=== PATIENT | female | born 1950 | race Caucasian/White ===

== ENCOUNTER 2024-01-17 11:15 | Emergency (ER) | payer OTHER ==
[2024-01-17] MEDS ORDERED: NA CHLORIDE 0.9% 500 ML ONE (11:56)
--- NOTE | 2024-01-17 11:56 | RAD REPORT ---
EXAMINATION: ONE VIEW CHEST XR CLINICAL INDICATION: Female, 73 years old.,COUGH TECHNIQUE: Frontal chest projection is submitted. Examination is limited by patient positioning and t echnique. COMPARISON: 11/25/2007 FINDINGS: The lungs are well inflated and clear. No pneumothorax or sizable effusion. The heart is normal in s ize. Mediastinal contours are unremarkable. IMPRESSION: No acute intrathoracic abnormalities.
[2024-01-17 11:57] LABS: Absolute Basophils 0.1 K/uL (0-0.5); Absolute Eosinophils 0.2 K/uL (0-0.5); Absolute Monocytes 0.4 K/uL (0.1-1.3); Absolute Neutrophil 7.6 K/uL (1.8-8.0); Basophils % 0.7 % (0-1.3); Eosinophils % 1.8 % (0-4.4); Hematocrit 38.5 % (36.0-45.0); Hemoglobin 12.6 g/dL (12.0-15.0); Lymphocytes % 11.3 % (15.3-44.8); MCH 29.2 pg (27.0-35.0); MCHC 32.8 g/dL (32.0-36.0); MPV 7.5 fL (7.6-11.3); Monocytes % 4.1 % (3.3-12.3); Neutrophils % 82.1 % (41.7-73.7); Platelets 214 thou/uL (152-406); RBC Red Blood Cell Count 4.33 M/uL (3.86-4.86); Red Cell Distribution Width 14.6 % (12.1-15.2)
[2024-01-17 12:01] LABS: PT Prothrombin Time 11.5 SECONDS (9.4-12.5); Protime INR 1.03; Specific Gravity 1.005 (1.005-1.030); Sqamous Epithelial <5 /HPF (None Seen); Urine Bacteria <20 /HPF (<20); Urine Bilirubin NEGATIVE (Negative); Urine Blood Negative (Negative); Urine Clarity Clear (Clear); Urine Color Colorless (Yellow); Urine Culture Reflex Order NOT NEEDED; Urine Glucose NEGATIVE (Negative); Urine Ketones NEGATIVE (Negative); Urine Microscopic Reflex YN ORDER UMIC; Urine Nitrite NEGATIVE (Negative); Urine Protein 2+ (Negative); Urine RBC <5 /HPF (None Seen); Urine Urobilinogen Normal (Normal); Urine WBC <5 /HPF (<5); Urine pH 6.5 (5.0-7.0)
[2024-01-17 12:18] LABS: ALT/SGPT 20 U/L (13-56); AST/SGOT 18 U/L (15-37); Albumin 3.6 g/dL (3.4-5.0); Alkaline Phosphatase 64 U/L (45-117); Anion Gap 8.9 mEq/L (5.0-15.0); BUN Blood Urea Nitrogen 36 mg/dL (7-18); Bicarbonate 25 mEq/L (21-32); Bilirubin Total 0.3 mg/dL (0.2-1.0); Globulin 3.7 g/dL (2.3-3.5); Glomerular Filtration Rate 50 ml/min (=/>90); Glucose Level 209 mg/dL (74-106); Lipase 93 U/L (13-75); Magnesium 1.8 mg/dL (1.6-2.4); NT PRO-BNP 485 pg/mL (<125); Potassium 3.9 mEq/L (3.5-5.1); Protein, Total 7.3 g/dL (6.4-8.2); Sodium Level 136 mEq/L (136-145); Troponin High Sensitivity 17.4 pg/mL (<58.9)
[2024-01-17 12:20] LABS: Bilirubin Direct < 0.2 mg/dL (0-0.2); Bilirubin Indirect, Calculated 0.1 mg/dL (0.2-0.8)
--- NOTE | 2024-01-17 14:00 | RAD REPORT ---
EXAMINATION: CT ABDOMEN AND PELVIS WITHOUT CONTRAST CLINICAL INDICATION: FLANK PAIN TECHNIQUE: CT abdomen and pelvis was performed, without IV contrast, as per department protocol. Axia l, sagittal and coronal reconstructions were obtained. One or more of the following dose reduction techniques were used: Automated exposure control, adjustment of the mA and kV according to the patien t size, and iterative reconstruction. Unless otherwise specified, incidental findings do not require dedicated imaging follow-up. COMPARISON: No prior exam. FINDINGS: The lack of intravenous contrast limits the sensitivity of this exam for evaluation of solid visceral organs, vascular structures, and retroperitoneum. LOWER CHEST: The visualized lung bases are clear. LIVER:Normal in size and contour. No focal lesion. Grossly unremarkable gallbladder. SPLEEN: Normal size. No focal lesion. PANCREAS: No mass, ductal dilation, or mika-pancreatic fluid. ADRENALS: Normal; no mass. KIDNEYS AND URETERS: Tiny punctate calyceal calculi suspected. No evidence of obstructive uropathy. URINARY BLADDER: Normal contour. GASTROINTESTINAL TRACT: No evidence of bowel obstruction, significant free fluid, free air or abscess . Sigmoid diverticulosis coli is present without diverticulitis. APPENDIX: Normal appendix. LYMPH NODES: No lymphadenopathy. MUSCULOSKELETAL: Moderate multilevel spinal degenerative changes. Minimal anterolisthesis L4 on 5. ADDITIONAL FINDINGS: None. IMPRESSION: Tiny punctate calculi suspected in both kidneys without hydronephrosis or other worrisome finding.
--- NOTE | 2024-01-17 14:04 | ER ---
Nurse's Notes [facility] Name: Deborah Ramirez Age: 73 yrs Sex: Female : 1950 Arrival Date: 01/17/2024 Time: 11:15 Bed 18 Private MD: Diagnosis: Essential (primary) hypertension;UTI/ Urinary tract infection, site not specified;Dizziness and giddiness Presentation: 01/16 11:25 Coronavirus screen: Client denies travel out of the [place] in the last 14 days. Ebola tm6 Screen: Patient negative for fever greater than or equal to 101.5 degrees Fahrenheit, and additional compatible Ebola Virus Disease symptoms Patient denies exposure to infectious person. Patient denies travel to an Ebola-affected area in the 21 days before illness onset. No symptoms or risks identified at this time. Initial Sepsis Screen:. 11:25 Method Of Arrival: EMS: [facility] tm6 11:25 Acuity: YOJANA 3 tm6 11:25 Chief complaint: EMS states: started to feel dizzy this morning and had high bp. tm6 Initial Sepsis Screen: Does the patient meet any 2 criteria? No. Patient's initial sepsis screen is negative. Does the patient have a suspected source of infection? No. Patient's initial sepsis screen is negative. Onset of symptoms was January 17, 2024. 15:27 Risk Assessment: Do you want to hurt yourself or someone else? Patient reports no tm6 desire to harm self or others. 15:28 Initial Sepsis Screen: Does the patient meet any 2 criteria?. tm6 Triage Assessment: 11:52 General: Appears in no apparent distress. Behavior is calm, cooperative. Pain: Denies tm6 pain. EENT: No signs and/or symptoms were reported regarding the EENT system. Neuro: Level of Consciousness is awake, alert, obeys commands, Oriented to person, place, time, situation, Reports dizziness, since around 0830 this morning. Mostly when she stands up. Cardiovascular: Patient's skin is warm and dry. Respiratory: Airway is patent Respiratory effort is even, unlabored, Respiratory pattern is regular, symmetrical. GI: No signs and/or symptoms were reported involving the gastrointestinal system. Abdomen is flat, non-distended. : No signs and/or symptoms were reported regarding the genitourinary system. Derm: No signs and/or symptoms reported regarding the dermatologic system. Musculoskeletal: No signs and/or symptoms reported regarding the musculoskeletal system. Historical: - Allergies: 11:52 No Known Allergies; tm6 - PMHx: 11:52 Diabetes mellitus; Hypertensive disorder; tm6 - PSHx: 11:52 cardiac stents; tm6 - Immunization history:: Flu vaccine is not up to date. - Infectious Disease History:: Denies. - Social history:: Smoking status: Patient denies any tobacco usage or history of. Screenin:54 [facility] ED Fall Risk Assessment (Adult) History of falling in the last 3 months, tm6 including since admission No falls in past 3 months (0 pts) Confusion or Disorientation No (0 pts) Intoxicated or Sedated No (0 pts) Impaired Gait No (0 pts) Mobility Assist Device Used No (0 pt) Altered Elimination No (0 pt) Score/Fall Risk Level 0 - 2 = Low Risk Oriented to surroundings, Maintained a safe environment, Educated pt \T\ family on fall prevention, incl call for assistance when getting out of bed. Abuse screen: Denies threats or abuse. Denies injuries from another. Nutritional screening: No deficits noted. Tuberculosis screening: No symptoms or risk factors identified. Assessment: 11:54 Reassessment: see triage assessment. tm6 14:21 Reassessment: Patient and/or family updated on plan of care and expected duration. Pain tm6 level reassessed. Patient is alert, oriented x 3, equal unlabored respirations, skin warm/dry/pink. 15:00 Reassessment: Patient and/or family updated on plan of care and expected duration. Pain tm6 level reassessed. Patient is alert, oriented x 3, equal unlabored respirations, skin warm/dry/pink. 15:26 Reassessment: Patient and/or family updated on plan of care and expected duration. Pain tm6 level reassessed. Patient is alert, oriented x 3, equal unlabored respirations, skin warm/dry/pink. Vital Signs: 11:17 BP 183 / 73; Pulse 78; Resp 18; Temp 98.5(O); Pulse Ox 100% on R/A; MAP 99 mmHg; Pain tm6 0/10; 14:20 BP 161 / 64; Pulse 75; Resp 18; Pulse Ox 99% on R/A; MAP 91 mmHg; Pain 0/10; tm6 15:00 BP 169 / 63; Pulse 75; Pulse Ox 99% on R/A; MAP 90 mmHg; Pain 0/10; tm6 15:27 BP 160 / 67; Pulse 67; Resp 17; Temp 98.5; Pulse Ox 100% on R/A; MAP 92 mmHg; Pain 0/10;tm6 11:17 Pain Scale: Adult tm6 14:20 Pain Scale: Adult tm6 15:00 Pain Scale: Adult tm6 15:27 Pain Scale: Adult tm6 NIH Stroke Scale Scores: 13:25 NIHSS Score: 0 [facility] ED Course: 11:17 Patient arrived in ED. bc6 11:17 Alexandr Olmos MD is Attending Physician. chanel 11:25 Pete Vieira, RN is Primary Nurse. tm6 11:25 Triage completed. tm6 11:30 XRAY Chest (1 view) In Process Unspecified. EDMS 11:39 EKG done, by ED staff, reviewed by Alexandr Olmos MD. tm6 11:52 Basic Metabolic Panel Sent. tm6 11:52 CBC with Diff Sent. tm6 11:52 LFT's Sent. tm6 11:52 Magnesium Sent. tm6 11:52 NT PRO-BNP Sent. tm6 11:52 PT-INR Sent. tm6 11:52 Troponin HS Sent. tm6 11:52 Urinalysis w/ reflexes Sent. tm6 11:52 Arm band placed on right wrist. tm6 11:54 Maintain EMS IV. Dressing intact. Good blood return noted. Site clean \T\ dry. Gauge \T\ tm 6 site: 20g LAC. Flushed with 10 mL NS. Patient maintains SpO2 saturation greater than 95% on room air. 11:54 Patient has correct armband on for positive identification. Placed in gown. Bed in low tm6 position. Call light in reach. Side rails up X2. Provided Education on: use of call douglass. Client placed on continuous cardiac and pulse oximetry monitoring. NIBP monitoring applied. metal punch press operator on. Pulse ox on. NIBP on. Door closed. Noise minimized. Warm blanket given. 13:40 CT Stone Protocol In Process Unspecified. EDMS 14:04 Oseas Metcalf MD is Referral Physician. [facility] 15:27 No provider procedures requiring assistance completed. IV discontinued, intact, tm6 bleeding controlled, No redness/swelling at site. Pressure dressing applied. Administered Medications: 12:01 Drug: NS 0.9% IV 500 ml IV at bolus once; to be given as a bolus over 30 minutes Route: tm6 IV; Rate: bolus; Site: left antecubital; 14:21 Follow up: Response: No adverse reaction; IV Status: Completed infusion; IV Intake: tm6 500ml 14:21 Drug: Rocephin IV 1 grams IV at per protocol once; Given slow IV push per pharmacy tm6 instructions Route: IV; Rate: per protocol; Site: left antecubital; 14:21 Follow up: Response: No adverse reaction; IV Status: Completed infusion; IV Intake: [id number] 14:21 Drug: Norvasc PO 10 mg PO once Route: PO; tm6 15:29 Follow up: Response: No adverse reaction tm6 14:21 Drug: Aspirin PO Chewable Tablet 81 mg PO once Route: PO; tm6 15:29 Follow up: Response: No adverse reaction tm6 14:55 Drug: Ciprofloxacin PO 250 mg PO once Route: PO; tm6 15:29 Follow up: Response: No adverse reaction tm6 Medication: 11:54 VIS not applicable for this client. tm6 Intake: 14:21 IV: 500ml; Total: 500ml. tm6 14:21 IV: 10ml; Total: 510ml. tm6 Outcome: 14:04 Discharge ordered by . chanel 15:27 Discharged to home ambulatory, with family, tm6 15:27 Condition: stable 15:27 Discharge instructions given to patient, family, Instructed on discharge instructions, follow up and referral plans. medication usage, Demonstrated understanding of instructions, follow-up care, medications, Prescriptions given X 2, 15:29 Patient left the ED. tm6 NIH Stroke Scale - NIH Stroke Score Date: 01/17/2024 Time: 13:25 Total Score = 0 10. Dysarthria (speech clarity - read or repeat words) - 0(Normal) 11. Extinction and Inattention (visual/tactile/auditory/spatial/personal) - 0(No abnormality) 1a. Level of Consciousness (LOC) - 0(Alert) 1b. Level of Consciousness (LOC) (Month \T\ Age) - 0(Both) 1c. LOC Commands (Open \T\ Closes Eyes/Air Traffic Control Equipment Repairer) - 0(Both) 2. Best Gaze (Lateral Gaze Paresis) - 0(Normal) 3. Visual Field Loss - 0(No visual loss) 4. Facial Palsy - 0(Normal) 5a. Left Arm: Motor (10-second hold) - 0(No drift) 5b. Right Arm: Motor (10-second hold) - 0(No drift) 6a. Left Leg: Motor (5-second hold - always test supine) - 0(No drift) 6b. Right Leg: Motor (5-second hold - always test supine) - 0(No drift) 7. Limb Ataxia (finger/nose \T\ heel/gaston - test with eyes open) - 0(Absent) 8. Sensory Loss (pinprick arms/legs/face) - 0(Normal) 9. Best Language: Aphasia (description/naming/reading) - 0(No aphasia) Initials: chanel Signatures: Dispatcher [employer] Alexandr Garay MD MD cha Carowatson, Breana 6 Pete Vieira RN RN tm6
--- NOTE | 2024-01-17 14:04 | EDPHYS ---
Physician Documentation [facility] Name: Deborah Ramirez Age: 73 yrs Sex: Female : 1950 Arrival Date: 01/17/2024 Time: 11:15 Bed 18 Private MD: ED Physician Alexandr Olmos HPI: 01/16 13:24 This 73 yrs old Female presents to ER via EMS with complaints of High Blood chanel Pressure, Dizziness. 13:24 The patient has elevated blood pressure and discovered this at home, with a home chanel device. Onset: The symptoms/episode began/occurred this morning, today. Modifying factors: The symptoms are aggravated by activity, The symptoms are alleviated by remaining still. Associated signs and symptoms: The patient has no apparent associated signs or symptoms. The patient has not experienced similar symptoms in the past. Historical: - Allergies: 11:52 No Known Allergies; tm6 - PMHx: 11:52 Diabetes mellitus; Hypertensive disorder; tm6 - PSHx: 11:52 cardiac stents; tm6 - Immunization history:: Flu vaccine is not up to date. - Infectious Disease History:: Denies. - Social history:: Smoking status: Patient denies any tobacco usage or history of. ROS: 13:25 Constitutional: Negative for fever, chills, and weight loss, Eyes: Negative for injury, chanel pain, redness, and discharge, ENT: Negative for injury, pain, and discharge, Neck: Negative for injury, pain, and swelling, Cardiovascular: Negative for chest pain, palpitations, and edema, Respiratory: Negative for shortness of breath, cough, wheezing, and pleuritic chest pain, Abdomen/GI: Negative for abdominal pain, nausea, vomiting, diarrhea, and constipation, Back: Negative for injury and pain, : Negative for injury, bleeding, discharge, and swelling, MS/Extremity: Negative for injury and deformity, Skin: Negative for injury, rash, and discoloration, Psych: Negative for depression, anxiety, suicide ideation, homicidal ideation, and hallucinations, Allergy/Immunology: Negative for hives, rash, and allergies, Endocrine: Negative for neck swelling, polydipsia, polyuria, polyphagia, and marked weight changes, Hematologic/Lymphatic: Negative for swollen nodes, abnormal bleeding, and unusual bruising, 13:25 Neuro: Positive for dizziness, headache, Exam: 13:25 Constitutional: This is a well developed, well nourished patient who is awake, alert, chanel and in no acute distress. Head/Face: Normocephalic, atraumatic. Eyes: Pupils equal round and reactive to light, extra-ocular motions intact. Lids and lashes normal. Conjunctiva and sclera are non-icteric and not injected. Cornea within normal limits. Periorbital areas with no swelling, redness, or edema. ENT: Nares patent. No nasal discharge, no septal abnormalities noted. Tympanic membranes are normal and external auditory canals are clear. Oropharynx with no redness, swelling, or masses, exudates, or evidence of obstruction, uvula midline. Mucous membranes moist. Neck: Trachea midline, no thyromegaly or masses palpated, and no cervical lymphadenopathy. Supple, full range of motion without nuchal rigidity, or vertebral point tenderness. No Meningismus. Chest/axilla: Normal chest wall appearance and motion. Nontender with no deformity. No lesions are appreciated. Cardiovascular: Regular rate and rhythm with a normal S1 and S2. No gallops, murmurs, or rubs. Normal PMI, no JVD. No pulse deficits. Respiratory: Lungs have equal breath sounds bilaterally, clear to auscultation and percussion. No rales, rhonchi or wheezes noted. No increased work of breathing, no retractions or nasal flaring. Abdomen/GI: Soft, non-tender, with normal bowel sounds. No distension or tympany. No guarding or rebound. No evidence of tenderness throughout. Back: No spinal tenderness. No costovertebral tenderness. Full range of motion. Skin: Warm, dry with normal turgor. Normal color with no rashes, no lesions, and no evidence of cellulitis. MS/ Extremity: Pulses equal, no cyanosis. Neurovascular intact. Full, normal range of motion., bilateral aka Neuro: Awake and alert, GCS 15, oriented to person, place, time, and situation. Cranial nerves II-XII grossly intact. Motor strength 5/5 in all extremities. Sensory grossly intact. Cerebellar exam normal. Normal gait. Psych: Awake, alert, with orientation to person, place and time. Behavior, mood, and affect are within normal limits. 13:25 ECG was reviewed by the Attending Physician. 13:25 Musculoskeletal/extremity: Extremities: all appear grossly normal, with no appreciated pain with palpation, ROM: no acute changes, intact in all extremities, full active range of motion, full passive range of motion, Circulation is intact in all extremities. Sensation intact. Compartment Syndrome exam of affected extremity: is normal. Weight bearing: able to fully bear weight, Vital Signs: 11:17 BP 183 / 73; Pulse 78; Resp 18; Temp 98.5(O); Pulse Ox 100% on R/A; MAP 99 mmHg; Pain tm6 0/10; 14:20 BP 161 / 64; Pulse 75; Resp 18; Pulse Ox 99% on R/A; MAP 91 mmHg; Pain 0/10; tm6 15:00 BP 169 / 63; Pulse 75; Pulse Ox 99% on R/A; MAP 90 mmHg; Pain 0/10; tm6 15:27 BP 160 / 67; Pulse 67; Resp 17; Temp 98.5; Pulse Ox 100% on R/A; MAP 92 mmHg; Pain 0/10;tm6 11:17 Pain Scale: Adult tm6 14:20 Pain Scale: Adult tm6 15:00 Pain Scale: Adult tm6 15:27 Pain Scale: Adult tm6 NIH Stroke Scale Scores: 13:25 NIHSS Score: 0 chanel MDM: 11:19 Medical Screening Exam initiated chanel 13:27 Differential diagnosis: hypertensive crisis, Malignant HTN, CVA, intracerebral chanel hemorrhage. Differential diagnosis: cardiac arrhythmia, CVA, generalized weakness, hypovolemia, idiopathic dizziness, near-syncope, TIA. Data reviewed: vital signs, nurses notes, EMS record, lab test result(s), EKG, radiologic studies, CT scan, plain films. Consideration of Admission/Observation Escalation of care including admission/observation considered. I considered the following discharge prescriptions or medication management in the emergency department Medications were administered in the Emergency Department. See MAR. Independent interpretation of the following test(s) in the Emergency Department X-Ray: My interpretation is cxr neg. CT Scan: My interpretation is stone no hydro. Test considered but Not performed: Ultrasound no 2 d echo. Historians other than the Patient: pt well informed. Care significantly affected by the following chronic conditions: Diabetes, Hypertension, Obesity, stents 6 weeks ago. Counseling: I had a detailed discussion with the patient and/or guardian regarding the historical points, exam findings, and any diagnostic results supporting the discharge/admit diagnosis, the presence of at least one elevated blood pressure reading (>120/80) during this emergency department visit, lab results, radiology results, the need for outpatient follow up. 01/16 11:19 Order name: Basic Metabolic Panel; Complete Time: 13:19 [facility] 01/16 11:19 Order name: CBC with Diff; Complete Time: 13:19 [facility] 01/16 11:19 Order name: LFT's; Complete Time: 13:19 [facility] 01/16 11:19 Order name: Magnesium; Complete Time: 13:19 [facility] 01/16 11:19 Order name: NT PRO-BNP; Complete Time: 13:19 [facility] 01/16 11:19 Order name: PT-INR; Complete Time: 13:19 [facility] 01/16 11:19 Order name: Troponin HS; Complete Time: 13:19 [facility] 01/16 11:19 Order name: Urinalysis w/ reflexes; Complete Time: 13:19 [facility] 01/16 11:19 Order name: Lipase; Complete Time: 13:19 [facility] 01/16 11:19 Order name: XRAY Chest (1 view); Complete Time: 13:19 [facility] 01/16 13:23 Order name: CT Stone Protocol; Complete Time: 14:04 [facility] 01/16 11:19 Order name: Cardiac monitoring; Complete Time: 11:52 [facility] 01/16 11:19 Order name: EKG - Nurse/Tech; Complete Time: 11:52 [facility] 01/16 11:19 Order name: IV Saline Lock; Complete Time: 11:52 [facility] 01/16 11:19 Order name: Labs collected and sent; Complete Time: 11:52 [facility] 01/16 11:19 Order name: O2 Per Protocol; Complete Time: 11:52 [facility] 01/16 11:19 Order name: O2 Sat Monitoring; Complete Time: 11:52 [facility] EC:25 Rate is 71 beats/min. Rhythm is regular. QRS [place] is Normal. QRS interval is normal. QT chanel interval is normal. No Q waves. T waves are Normal. No ST changes noted. Clinical impression: NSR w/ Non-specific ST/T Changes and No evidence of ischemia. Interpreted by me. Reviewed by me. Administered Medications: 12:01 Drug: NS 0.9% IV 500 ml IV at bolus once; to be given as a bolus over 30 minutes Route: tm6 IV; Rate: bolus; Site: left antecubital; 14:21 Follow up: Response: No adverse reaction; IV Status: Completed infusion; IV Intake: tm6 500ml 14:21 Drug: Rocephin IV 1 grams IV at per protocol once; Given slow IV push per pharmacy tm6 instructions Route: IV; Rate: per protocol; Site: left antecubital; 14:21 Follow up: Response: No adverse reaction; IV Status: Completed infusion; IV Intake: [id number] 14:21 Drug: Norvasc PO 10 mg PO once Route: PO; tm6 15:29 Follow up: Response: No adverse reaction tm6 14:21 Drug: Aspirin PO Chewable Tablet 81 mg PO once Route: PO; tm6 15:29 Follow up: Response: No adverse reaction tm6 14:55 Drug: Ciprofloxacin PO 250 mg PO once Route: PO; tm6 15:29 Follow up: Response: No adverse reaction tm6 Disposition Summary: 01/17/24 14:04 Discharge Ordered Notes: Location: Home chanel Problem: new chanel Symptoms: have improved chanel Condition: Stable chanel Diagnosis - Essential (primary) hypertension chanel - UTI/ Urinary tract infection, site not specified chanel - Dizziness and giddiness chanel Followup: chanel - With: Private Physician - When: 2 - 3 days - Reason: Recheck today's complaints, Continuance of care, Re-evaluation by your physician Followup: chanel - With: Osaes Metcalf MD - When: 2 - 3 days - Reason: Recheck today's complaints, Re-evaluation by your physician Discharge Instructions: - Discharge Summary Sheet chanel - Dizziness chanel - Hypertension, Adult chanel - Urinary Tract Infection, Adult chanel - Urinary Tract Infection, Adult, [id number] chanel - Hypertension, Adult, [id number] chanel - How to Take Your Blood Pressure, [id number] chanel - Aspirin and Your Heart chanel - Managing Your Hypertension chanel Forms: - Medication Reconciliation Form chanel - Antibiotic Education chanel - Prescription Opioid Use chanel - Patient Portal Instructions chanel - Leadership Thank You Letter chanel Prescriptions: - Cipro 250 mg Oral tablet - take 1 tablet ORAL route every 12 hours; 10 tablet; Refills: 0, Product chanel Selection Permitted - Norvasc 5 mg Oral Tablet - take 1 tablet ORAL route once daily; 20 tablet; Refills: 0, Product Selection chanel Permitted NIH Stroke Scale - NIH Stroke Score Date: 01/17/2024 Time: 13:25 Total Score = 0 10. Dysarthria (speech clarity - read or repeat words) - 0(Normal) 11. Extinction and Inattention (visual/tactile/auditory/spatial/personal) - 0(No abnormality) 1a. Level of Consciousness (LOC) - 0(Alert) 1b. Level of Consciousness (LOC) (Month \T\ Age) - 0(Both) 1c. LOC Commands (Open \T\ Closes Eyes/Rover Tender) - 0(Both) 2. Best Gaze (Lateral Gaze Paresis) - 0(Normal) 3. Visual Field Loss - 0(No visual loss) 4. Facial Palsy - 0(Normal) 5a. Left Arm: Motor (10-second hold) - 0(No drift) 5b. Right Arm: Motor (10-second hold) - 0(No drift) 6a. Left Leg: Motor (5-second hold - always test supine) - 0(No drift) 6b. Right Leg: Motor (5-second hold - always test supine) - 0(No drift) 7. Limb Ataxia (finger/nose \T\ heel/gaston - test with eyes open) - 0(Absent) 8. Sensory Loss (pinprick arms/legs/face) - 0(Normal) 9. Best Language: Aphasia (description/naming/reading) - 0(No aphasia) Initials: chanel Signatures: Dispatcher [employer] EDAlexandr Nicholas MD MD cha Masterson, Tawney RN RN tm6 Corrections: (The following items were deleted from the chart) 11:19 11:19 BASIC METABOLIC PANEL+C.LAB.BRZ ordered. EDMS EDMS 11:19 11:19 CBC+H.LAB.BRZ ordered. EDMS EDMS 11:19 11:19 HEPATIC FUNCTION+C.LAB.BRZ ordered. EDMS EDMS 11:19 11:19 MAGNESIUM+C.LAB.BRZ ordered. EDMS EDMS 11:19 11:19 PROBNP+C.LAB.BRZ ordered. EDMS EDMS 11:19 11:19 PROTIME (+INR)+COAG.LAB.BRZ ordered. EDMS EDMS 11:19 11:19 Troponin High Sensitivity+C.LAB.BRZ ordered. EDMS EDMS 11:19 11:19 Urinalysis+U.LAB.BRZ ordered. EDMS EDMS 11:19 11:19 LIPASE+C.LAB.BRZ ordered. EDMS EDMS : 11:19 Chest Single View+RAD.RAD.BRZ ordered. EDMS EDMS 13:24 13:23 Urine Culture+BA.LAB.BRZ ordered. EDMS EDMS
[2024-01-17] MEDS ORDERED: CEFTRIAXONE 1000 MG/VIAL ONE (14:05)
[2024-01-17] MEDS ORDERED: AMLODIPINE 10 MG TAB ONE (14:06)
[2024-01-17] MEDS ORDERED: ASPIRIN 81 MG CHEWABLE TABLET ONE (14:06)
[2024-01-17] MEDS ORDERED: CIPROFLOXACIN HCL 500 MG TAB ONE (14:53)
[2024-01-17 16:14] VITALS: TEMP 98.5
[2024-01-17 16:19] VITALS: BP 160/67; O2SAT 100
--- NOTE | 2024-01-18 15:47 | EKG ---
Test Date: 2024-01-17 Test Time: 11:37:12 Pediatric Sports Medicine Specialist: HORTENSIA MEASUREMENT RESULTS: Intervals: Rate: 71 MA: 126 QRSD: 108 QT: 402 QTc: 436 [place]: P: 68 MA: 126 QRS: -5 T: 48 INTERPRETIVE STATEMENTS: Normal sinus rhythm Inferior infarct, age undetermined Anterior infarct, age undetermined Abnormal ECG Compared to ECG 11/25/2007 08:28:41 Myocardial infarct finding now present Electronically Signed On 01-18-24 15:45:59 STRETCHER OPERATOR by Ashkan Seth
== END 2024-01-17 15:29 | disposition home or self-care (01) ==
LOC: ER 11:15
DX: N39.0 Urinary tract infection, site not specified (principal); I10 Essential (primary) hypertension; R42 Dizziness and giddiness; E11.9 Type 2 diabetes mellitus without complications
CPT/HCPCS: 96361; 93005; 85025; 81001; 80048; 36415; 83735; 85610; 80076; 84484; 83690; 83880; 76377; 74176; 71045; 96374; 99285; J7040; J0696